=== PATIENT | male | born 1985 | race Hispanic/Latino ===

== ENCOUNTER 2021-04-13 20:59 | Emergency (ER) | payer SELFPAY ==
[2021-04-14] MEDS ORDERED: LEVETIRACETAM 500 MG/5 ML VIAL IV ONE (01:27)
[2021-04-14] MEDS ORDERED: NA CHLORIDE 0.9% 100 ML ONE (01:28)
[2021-04-14] MEDS ORDERED: NA CHLORIDE 0.9% 1,000 ML ONE (01:28)
[2021-04-14 01:32] LABS: Absolute Lymphocytes (CBC) 1.7 K/uL (0.7-4.9); Basophils % 0.2 % (0-1.3); Hematocrit 35.7 % (39.6-49.0); Lymphocytes % 12.5 % (15.3-44.8); MPV 7.4 fL (7.6-11.3); RBC Red Blood Cell Count 4.26 M/uL (4.33-5.43)
[2021-04-14 01:59] LABS: ALT/SGPT 30 U/L (12-78); AST/SGOT 19 U/L (15-37); Albumin 3.6 g/dL (3.4-5.0); Alkaline Phosphatase 97 U/L (45-117); BUN Blood Urea Nitrogen 12 mg/dL (7-18); Bicarbonate 25 mmol/L (21-32); Bilirubin Direct < 0.1 mg/dL (0-0.2); Bilirubin Total 0.1 mg/dL (0.2-1.0); Glucose Level 95 mg/dL (74-106); Potassium 4.3 mmol/L (3.5-5.1); Protein, Total 7.7 g/dL (6.4-8.2); Sodium Level 139 mmol/L (136-145); Troponin (Emerg Dept Use Only) < 0.02 ng/mL (0.0-0.045)
--- NOTE | 2021-04-14 07:59 | EKG ---
Test Date: 2021-04-14 Test Time: 01:12:38 Campus Rep: VIRIDIANA MEASUREMENT RESULTS: Intervals: Rate: 68 AR: 184 QRSD: 94 QT: 380 QTc: 404 Reddick: P: 23 AR: 184 QRS: 59 T: 0 INTERPRETIVE STATEMENTS: Normal sinus rhythm Normal ECG No previous ECG available for comparison Electronically Signed On 04-14-21 07:57:34 CDT by [place]
--- NOTE | 2021-04-14 12:45 | RAD REPORT ---
EXAM DESCRIPTION: CT - Head Brain Wo Cont - 04/14/2021 6:32 am CLINICAL HISTORY: SEIZURE TECHNIQUE: Contiguous axial CT images obtained through the brain without IV contrast. Coronal and sa gittal reformatted images were provided. This exam was performed according to our departmental dose-optimization program, which includes autom ated exposure control, adjustment of the mA and/or kV according to patient size and/or use of iterati ve reconstruction technique. COMPARISON: None available for comparison FINDINGS: Brain: No significant white matter changes. No focal mass effect. Mendoza-white matter differ entiation is within normal limits. No hemorrhage. Ventricles: No ventriculomegaly or midline shift. Extra-axial spaces: No extra-axial collection or hemorrhage. Paranasal sinuses and mastoid air cells: Mild bilateral ethmoid sinus mucosal thickening. Vessels: Unremarkable Bones: Unremarkable Soft tissues: Unremarkable IMPRESSION: No acute hemorrhage, focal mass or large territory infarction. Electronically signed by: Eryn Norman MD 04/13/2021 10:42 PM CDT Due to temporary technical issues with the PACS/Fluency reporting system, reports are being signed by the in house radiologists without review as a courtesy to insure prompt reporting. The interpreting radiologist is fully responsible for the content of the report.
--- NOTE | 2021-04-14 17:50 | ER ---
Nurse's Notes [facility] Name: Chacho Laureano Age: 35 yrs Sex: Male : 1985 Arrival Date: 04/13/2021 Time: 21:01 Bed 17 Private MD: Diagnosis: Other seizures;Epileptic seizures related to external causes, not intractable, without status epilepticus Presentation: 04/13 21:44 Chief complaint: Patient states: Seizure at 19:30 witnessed by . stated he kg didn't hit his head and unsure of how long the seizure was. Pt did bite his tongue, denies loss of bowel or bladder. Pt had his first seizure two months ago but hasn't followed up with neurology. Coronavirus screen: Client denies travel out of the [place] in the last 14 days. At this time, unable to obtain information related to travel outside the [place] At this time, the client does not indicate any symptoms associated with coronavirus-19. Ebola Screen: Patient negative for fever greater than or equal to 101.5 degrees Fahrenheit, and additional compatible Ebola Virus Disease symptoms Patient denies exposure to infectious person. Patient denies travel to an Ebola-affected area in the 21 days before illness onset. Initial Sepsis Screen: Does the patient meet any 2 criteria? No. Patient's initial sepsis screen is negative. Does the patient have a suspected source of infection? No. Patient's initial sepsis screen is negative. Risk Assessment: Do you want to hurt yourself or someone else? Patient reports no desire to harm self or others. Onset of symptoms was April 13, 2021 at 19:30. 21:44 Method Of Arrival: Ambulatory kg 21:44 Acuity: NATY 3 kg Triage Assessment: 21:47 General: Appears in no apparent distress. Behavior is calm, cooperative, appropriate kg for age, quiet. Pain: Complains of pain in Back, left shoulder. Historical: - Allergies: 21:47 No Known Allergies; kg - Home Meds: 21:47 None [Active]; kg - PMHx: 21:47 Seizure; kg - PSHx: 21:47 Appendectomy; kg - Immunization history:: Adult Immunizations up to date, Client reports receiving the 2nd dose of the Covid vaccine, Date received: December 25, 2020 Client reports receiving the 1st dose of the Covid vaccine, December 08, 2020. - Social history:: Smoking status: Patient denies any tobacco usage or history of. Patient uses. - Family history:: not pertinent. Screenin:49 Abuse screen: Denies threats or abuse. Denies injuries from another. Nutritional kg screening: No deficits noted. Tuberculosis screening: No symptoms or risk factors identified. Fall Risk None identified. Fall in past 12 months (25 points). No secondary diagnosis (0 pts). No IV (0 pts). Ambulatory Aid- None/Bed Rest/Nurse Assist (0 pts). Gait- Normal/Bed Rest/Wheelchair (0 pts) Mental Status- Oriented to own ability (0 pts). Total Casey Fall Scale indicates No Risk (0-24 pts). Assessment: 04/14 01:00 Reassessment: Pt S.O. reports pt with witnessed seizure like activity this pm, lasting ad5 approximately 5 min. Pt denies pmh. S.O. reports same s/s approximately 2 mos ago. Pt denies exacerbating factors. Denies c/o at this time, no focal deficits noted. General: Appears in no apparent distress. Behavior is calm, cooperative, appropriate for age. Pain: Denies pain. Neuro: No deficits noted. Level of Consciousness is awake, alert, obeys commands, Oriented to person, place, time, situation, Appropriate for age Engineer Specialist are equal bilaterally Moves all extremities. Gait is steady, Speech is normal, Pupils are PERRLA, Intact. Cardiovascular: No deficits noted. Capillary refill < 3 seconds Patient's skin is warm and dry. Respiratory: Airway is patent Respiratory effort is even, unlabored, Respiratory pattern is regular, symmetrical. GI: No deficits noted. No signs and/or symptoms were reported involving the gastrointestinal system. : No deficits noted. No signs and/or symptoms were reported regarding the genitourinary system. Derm: Skin is dry, Skin is normal, Skin temperature is warm. Musculoskeletal: No deficits noted. No signs and/or symptoms reported regarding the musculoskeletal system. 02:00 Reassessment: Patient appears in no apparent distress at this time. Patient and/or ad5 family updated on plan of care and expected duration. Pain level reassessed. Patient is alert, oriented x 3, equal unlabored respirations, skin warm/dry/pink. Patient states feeling better. Vital Signs: 04/13 21:44 BP 120 / 83; Pulse 83; Resp 20; Temp 97.2(TE); Pulse Ox 99% on R/A; Weight 81.37 kg kg (M); Height 5 ft. 8 in. (172.72 cm) (R); Pain 8; 04/14 01:00 BP 113 / 78; Pulse 69; Resp 16 S; Pulse Ox 98% on R/A; ad5 02:00 BP 108 / 71; Pulse 68; Resp 17 S; Pulse Ox 97% on R/A; ad5 04/13 21:44 Body Mass Index 27.28 (81.37 kg, 172.72 cm) kg ED Course: 04/13 21:01 Patient arrived in ED. cf2 21:47 Triage completed. kg 21:47 Arm band placed on left wrist. kg 21:49 Patient has correct armband on for positive identification. kg 22:01 CT Head Brain wo Cont In Process Unspecified. EDMS 04/14 00:54 Efraín Liao MD is Attending Physician. cristhian 01:03 Dave Lopez is Primary Nurse. ad5 01:23 Initial lab(s) drawn, by nd, sent to lab. EKG done, by ED staff, reviewed by Efraín Liao MD. Inserted saline lock: 20 gauge in left antecubital area, using aseptic technique. Blood collected. 02:00 Lamont Sanders MD is Referral Physician. cristhian 02:16 No provider procedures requiring assistance completed. IV discontinued, intact, ad5 bleeding controlled, No redness/swelling at site. Pressure dressing applied. Administered Medications: 01:23 Drug: NS 0.9% 1000 ml Route: IV; Rate: 1 bolus; Site: left antecubital; ad5 02:16 Follow up: IV Status: Completed infusion ad5 01:23 Drug: Keppra (levETIRAcetam) 1000 mg Route: IV; Rate: per protocol; Site: left ad5 antecubital; 02:05 Follow up: Response: No adverse reaction; IV Status: Completed infusion; IV Intake: ad5 1000ml Intake: 02:05 IV: 1000ml; Total: 1000ml. ad5 Outcome: 02:00 Discharge ordered by . cristhian 02:17 Discharged to home ambulatory. ad5 02:17 Condition: stable 02:17 Discharge instructions given to patient, significant other, Instructed on discharge instructions, follow up and referral plans. medication usage, Demonstrated understanding of instructions, follow-up care, medications, Prescriptions given X 1. 02:18 Patient left the ED. ad5 Signatures: Dispatcher [employer] Efraín Jaquez MD MD cha Frazier, Celesta cf2 Candi Sarabia, PILI RN Dave Larios ad5
--- NOTE | 2021-04-14 17:50 | EDPHYS ---
Physician Documentation [facility] Name: Chacho Laureano Age: 35 yrs Sex: Male : 1985 Arrival Date: 04/13/2021 Time: 21:01 Bed 17 Private MD: Efraín Gibbs HPI: 04/14 01:01 This 35 yrs old Male presents to ER via Ambulatory with complaints of SEIZURE cristhian PRIOR TO ARRIVAL. 01:01 The patient presents after having a single isolated seizure, that lasted 1.5 minute(s). cristhian Character of seizure(s): Loss of consciousness: the patient experienced loss of consciousness, Motor activity: generalized, Incontinence: none, Apnea: the patient did not experience apnea. Seizure onset: just prior to arrival. Context: the seizure(s) was witnessed, by family, occurred at home. Seizure Hx: Last seizure: The patient's last seizure was approximately 1 year(s) ago. Associated injury: The patient did not suffer any apparent associated injury. EMS care: none. Current symptoms: Currently, the patient is not experiencing any symptoms. The patient has experienced a previous episode, last year. Historical: - Allergies: 04/13 21:47 No Known Allergies; kg - Home Meds: 21:47 None [Active]; kg - PMHx: 21:47 Seizure; kg - PSHx: 21:47 Appendectomy; kg - Immunization history:: Adult Immunizations up to date, Client reports receiving the 2nd dose of the Covid vaccine, Date received: December 25, 2020 Client reports receiving the 1st dose of the Covid vaccine, December 08, 2020. - Social history:: Smoking status: Patient denies any tobacco usage or history of. Patient uses. - Family history:: not pertinent. ROS: 04/14 01:01 Constitutional: Negative for fever, chills, and weight loss, Eyes: Negative for injury, cristhian pain, redness, and discharge, ENT: Negative for injury, pain, and discharge, Neck: Negative for injury, pain, and swelling, Cardiovascular: Negative for chest pain, palpitations, and edema, Respiratory: Negative for shortness of breath, cough, wheezing, and pleuritic chest pain, Abdomen/GI: Negative for abdominal pain, nausea, vomiting, diarrhea, and constipation, Back: Negative for injury and pain, : Negative for injury, bleeding, discharge, and swelling, MS/Extremity: Negative for injury and deformity, Skin: Negative for injury, rash, and discoloration, Psych: Negative for depression, anxiety, suicide ideation, homicidal ideation, and hallucinations, Allergy/Immunology: Negative for hives, rash, and allergies, Endocrine: Negative for neck swelling, polydipsia, polyuria, polyphagia, and marked weight changes, Hematologic/Lymphatic: Negative for swollen nodes, abnormal bleeding, and unusual bruising. Neuro: Positive for seizure activity. Exam: :02 Constitutional: This is a well developed, well nourished patient who is awake, alert, cristhian and in no acute distress. Head/Face: Normocephalic, atraumatic. Eyes: Pupils equal round and reactive to light, extra-ocular motions intact. Lids and lashes normal. Conjunctiva and sclera are non-icteric and not injected. Cornea within normal limits. Periorbital areas with no swelling, redness, or edema. ENT: Nares patent. No nasal discharge, no septal abnormalities noted. Tympanic membranes are normal and external auditory canals are clear. Oropharynx with no redness, swelling, or masses, exudates, or evidence of obstruction, uvula midline. Mucous membranes moist. Neck: Trachea midline, no thyromegaly or masses palpated, and no cervical lymphadenopathy. Supple, full range of motion without nuchal rigidity, or vertebral point tenderness. No Meningismus. Chest/axilla: Normal chest wall appearance and motion. Nontender with no deformity. No lesions are appreciated. Cardiovascular: Regular rate and rhythm with a normal S1 and S2. No gallops, murmurs, or rubs. Normal PMI, no JVD. No pulse deficits. Respiratory: Lungs have equal breath sounds bilaterally, clear to auscultation and percussion. No rales, rhonchi or wheezes noted. No increased work of breathing, no retractions or nasal flaring. Abdomen/GI: Soft, non-tender, with normal bowel sounds. No distension or tympany. No guarding or rebound. No evidence of tenderness throughout. Back: No spinal tenderness. No costovertebral tenderness. Full range of motion. Skin: Warm, dry with normal turgor. Normal color with no rashes, no lesions, and no evidence of cellulitis. MS/ Extremity: Pulses equal, no cyanosis. Neurovascular intact. Full, normal range of motion. Neuro: Awake and alert, GCS 15, oriented to person, place, time, and situation. Cranial nerves II-XII grossly intact. Motor strength 5/5 in all extremities. Sensory grossly intact. Cerebellar exam normal. Normal gait. Psych: Awake, alert, with orientation to person, place and time. Behavior, mood, and affect are within normal limits. 01:33 ECG was reviewed by the Attending Physician. [facility] Vital Signs: 04/13 21:44 BP 120 / 83; Pulse 83; Resp 20; Temp 97.2(TE); Pulse Ox 99% on R/A; Weight 81.37 kg kg (M); Height 5 ft. 8 in. (172.72 cm) (R); Pain 04/28; 04/14 01:00 BP 113 / 78; Pulse 69; Resp 16 S; Pulse Ox 98% on R/A; ad5 02:00 BP 108 / 71; Pulse 68; Resp 17 S; Pulse Ox 97% on R/A; ad5 04/13 21:44 Body Mass Index 27.28 (81.37 kg, 172.72 cm) kg MDM: 00:54 Patient medically screened. [facility] 01:03 Differential diagnosis: drug overdose, cardiac arrhythmia, seizure. Data reviewed: [facility] vital signs, nurses notes, lab test result(s), EKG, radiologic studies, CT scan. Data interpreted: monitoring specialist: rate is 83 beats/min, rhythm is regular, Pulse oximetry: on room air is 99 %. Test interpretation: by ED physician or midlevel provider: ECG. Counseling: I had a detailed discussion with the patient and/or guardian regarding: the historical points, exam findings, and any diagnostic results supporting the discharge/admit diagnosis, lab results, radiology results, the need for outpatient follow up, for definitive care, a family practitioner, a neurologist. 04/14 00:59 Order name: Acetaminophen [facility] 04/14 00:59 Order name: Basic Metabolic Panel [facility] 04/14 00:59 Order name: CBC with Diff; Complete Time: 01:50 [facility] 04/14 00:59 Order name: ETOH Level; Complete Time: 02:00 [facility] 04/14 00:59 Order name: Hepatic Function [facility] 04/14 00:59 Order name: Salicylate [facility] 04/13 21:52 Order name: CT Head Brain wo Cont kg 04/14 00:59 Order name: EKG; Complete Time: 01:00 [facility] 04/14 00:59 Order name: EKG - Nurse/Tech; Complete Time: [facility] 04/14 00:59 Order name: IV Saline Lock; Complete Time: [facility] 04/14 00:59 Order name: Troponin (emerg Dept Use Only) [facility] 04/14 00:59 Order name: Labs collected and sent; Complete Time: [facility] 04/14 00:59 Order name: Seizure Precautions; Complete Time: 01:03 [facility] EC:33 Rate is 68 beats/min. Rhythm is regular. QRS [place] is Normal. IA interval is normal. QRS cristhian interval is normal. QT interval is normal. No Q waves. T waves are Normal. No ST changes noted. Clinical impression: Normal ECG and No evidence of ischemia. Interpreted by me. Reviewed by me. Administered Medications: Drug: NS 0.9% 1000 ml Route: IV; Rate: 1 bolus; Site: left antecubital; ad5 02:16 Follow up: IV Status: Completed infusion ad5 01:23 Drug: Keppra (levETIRAcetam) 1000 mg Route: IV; Rate: per protocol; Site: left ad5 antecubital; 02:05 Follow up: Response: No adverse reaction; IV Status: Completed infusion; IV Intake: ad5 1000ml Disposition Summary: 04/14/21 02:00 Discharge Ordered Location: Home cristhian Problem: new cristhian Symptoms: have improved cristhian Condition: Stable cristhian Diagnosis - Other seizures cristhian - Epileptic seizures related to external causes, not intractable, without status cristhian epilepticus Followup: cristhian - With: Private Physician - When: 2 - 3 days - Reason: Recheck today's complaints, Continuance of care, Re-evaluation by your physician Followup: cristhian - With: - When: 2 - 3 days - Reason: Recheck today's complaints, Re-evaluation by your physician Discharge Instructions: - Discharge Summary Sheet cristhian - Epilepsy cristhian - Seizure, Adult cristhian - Epilepsy, [id number] cristhian Forms: - Medication Reconciliation Form cristhian - Thank You Letter cristhian - Antibiotic Education cristhian - Prescription Opioid Use cristhian Prescriptions: - Keppra 500 mg Oral Tablet - take 1 tablet by ORAL route every 12 hours; 30 tablet; Refills: 0, Product cristhian Selection Permitted Signatures: Dispatcher [employer] CLEMENTINE Liao Efraín, MD MD cristhian Cornell, Candi, RN RN Dave Larios
[2021-04-15 17:28] VITALS: TEMP 97.2
[2021-04-15 17:32] VITALS: BP 108/71; O2SAT 97
== END 2021-04-14 02:18 | disposition home or self-care (01) ==
LOC: ER 20:59
DX: G40.509 Epileptic seizures related to external causes, not intractable, without status epilepticus (principal)
CPT/HCPCS: 36415; 70450; 80048; 80076; 80320; 80329; 84484; 85025; 93005; J1953; J7030

== ENCOUNTER 2021-05-02 15:06 | Emergency (ER) | payer SELFPAY ==
--- NOTE | 2021-05-02 16:11 | EDPHYS ---
Physician Documentation [facility] Name: Chacho Pulido Age: 35 yrs Sex: Male : 1985 Arrival Date: 05/02/2021 Time: 15:07 Bed Waiting Private MD: ED Physician Drew Davis HPI: 05/02 16:06 This 35 yrs old Male presents to ER via Ambulatory with complaints of cp Medication Refill. 16:06 The patient presents to the emergency department requesting refill(s) for: Keppra. The cp patient chronically suffers from seizures. 16:06 Patient reports he has an appointment with neurology in 2 months. cp Historical: - Allergies: 16:06 No Known Allergies; ss - PMHx: 16:06 Seizure; ss - PSHx: 16:06 Appendectomy; ss - Immunization history:: Adult Immunizations up to date. - Social history:: Smoking status: Patient denies any tobacco usage or history of. ROS: 16:08 Constitutional: Negative for fever. cp 16:08 Neuro: Positive for history of seizure disorder, Negative for altered mental status, headache. Exam: 16:08 Head/Face: Normocephalic, atraumatic. cp 16:08 Constitutional: The patient appears in no acute distress, alert, awake, comfortable, non-toxic, well developed, well nourished. 16:08 Eyes: Periorbital structures: appear normal, Pupils: equal, round, and reactive to light and accomodation, Extraocular movements: intact throughout, Conjunctiva: normal, no exudate, no injection, Sclera: no appreciated abnormality, Lids and lashes: appear normal, bilaterally. 16:08 ENT: External ear(s): are unremarkable, Nose: is normal, Posterior pharynx: Airway: no evidence of obstruction, patent. 16:08 Chest/axilla: Inspection: normal, Palpation: is normal, no crepitus, no tenderness. 16:08 Cardiovascular: Rate: normal, Rhythm: regular. 16:08 Respiratory: the patient does not display signs of respiratory distress, Respirations: normal, no use of accessory muscles. 16:08 Neuro: Orientation: to person, place \T\ time. Mentation: is normal, Motor: moves all fours, strength is normal, Gait: is steady, at a normal pace, without difficulty. Vital Signs: 16:01 BP 131 / 77 RA Sitting (auto/reg); Pulse 84; Resp 14 S; Temp 98.2(TE); Pulse Ox 98% on ss R/A; Weight 70.76 kg (R); Height 5 ft. 9 in. (175.26 cm) (R); Pain 0/10; 16:01 Body Mass Index 23.04 (70.76 kg, 175.26 cm) ss MDM: 16:10 Patient medically screened. cp 16:10 Data reviewed: vital signs, nurses notes. Counseling: I had a detailed discussion with cp the patient and/or guardian regarding: the historical points, exam findings, and any diagnostic results supporting the discharge/admit diagnosis, the need for outpatient follow up, for definitive care, a neurologist. Administered Medications: No medications were administered Disposition: 16:15 Chart complete. cp Disposition Summary: 05/02/21 16:10 Discharge Ordered Location: Home cp Problem: chronic cp Symptoms: are unchanged cp Condition: Stable cp Diagnosis - Other seizures cp Followup: cp - With: Lamont Sanders MD - When: 2 - 3 days - Reason: Recheck today's complaints Discharge Instructions: - Discharge Summary Sheet cp - Electroencephalogram, Adult cp - Seizure, Adult cp Forms: - Medication Reconciliation Form cp - Thank You Letter cp - Antibiotic Education cp - Prescription Opioid Use cp Prescriptions: - Keppra 500 mg Oral Tablet - take 1 tablet by ORAL route every 12 hours; 60 tablet; Refills: 0, Product cp Selection Permitted Addendum: 05/03/2021 18:43 Co-signature as Attending Physician, Drew Davis MD I agree with the assessment and t w4 plan of care. Signatures: Baylee Gordillo, RN RN ss Efraín Sheets PA PA cp Drew Davis MD MD tw4
--- NOTE | 2021-05-02 16:11 | ER ---
Nurse's Notes [facility] Name: Chacho Pulido Age: 35 yrs Sex: Male : 1985 Arrival Date: 05/02/2021 Time: 15:07 Bed Waiting Private MD: Diagnosis: Other seizures Presentation: 05/02 16:03 Chief complaint: Patient states: Out of seizure medication. Has an appointment with ss neuro, but is in two months. Coronavirus screen: Client denies travel out of the [place] in the last 14 days. Ebola Screen: Patient denies exposure to infectious person. Patient denies travel to an Ebola-affected area in the 21 days before illness onset. Initial Sepsis Screen: Does the patient meet any 2 criteria? No. Patient's initial sepsis screen is negative. Does the patient have a suspected source of infection? No. Patient's initial sepsis screen is negative. Risk Assessment: Do you want to hurt yourself or someone else? Patient reports no desire to harm self or others. Onset of symptoms is unknown. 16:03 Method Of Arrival: Ambulatory ss 16:03 Acuity: NATY 5 ss Historical: - Allergies: 16:06 No Known Allergies; ss - PMHx: 16:06 Seizure; ss - PSHx: 16:06 Appendectomy; ss - Immunization history:: Adult Immunizations up to date. - Social history:: Smoking status: Patient denies any tobacco usage or history of. Screenin:06 Abuse screen: Denies threats or abuse. Denies injuries from another. Nutritional ss screening: No deficits noted. Tuberculosis screening: Never had TB. Fall Risk None identified. Assessment: 16:06 General: Appears in no apparent distress. comfortable, Behavior is calm, cooperative. ss Pain: Denies pain. Neuro: Level of Consciousness is awake, alert, obeys commands, Oriented to person, place, time, situation. Cardiovascular: Capillary refill < 3 seconds is brisk in bilateral fingers. Respiratory: Airway is patent Respiratory effort is even, unlabored, Respiratory pattern is regular, symmetrical. GI: No signs and/or symptoms were reported involving the gastrointestinal system. EENT: Throat is clear. Derm: Skin is intact, is healthy with good turgor, Skin is Skin is pink, warm \T\ dry. normal. Musculoskeletal: Circulation, motion, and sensation intact. Range of motion: intact in all extremities, Swelling absent. Vital Signs: 16:01 BP 131 / 77 RA Sitting (auto/reg); Pulse 84; Resp 14 S; Temp 98.2(TE); Pulse Ox 98% on ss R/A; Weight 70.76 kg (R); Height 5 ft. 9 in. (175.26 cm) (R); Pain 0/10; 16:01 Body Mass Index 23.04 (70.76 kg, 175.26 cm) ED Course: 15:07 Patient arrived in ED. mr 16:05 Triage completed. ss 16:05 Efraín Sheets PA is PHCP. cp 16:06 Drew Davis MD is Attending Physician. cp 16:06 Arm band placed on right wrist. ss 16:06 Patient has correct armband on for positive identification. Bed in low position. Call ss light in reach. 16:07 No provider procedures requiring assistance completed. Patient did not have IV access ss during this emergency room visit. 16:10 Lamont Sanders MD is Referral Physician. cp Administered Medications: No medications were administered Outcome: 16:07 Discharged to home ambulatory. ss 16:07 Condition: good 16:07 Discharge instructions given to patient, Instructed on discharge instructions, follow up and referral plans. medication usage, Demonstrated understanding of instructions, follow-up care, medications, Prescriptions given X 1. 16:10 Discharge ordered by . cp 16:14 Patient left the ED. Signatures: OleaBrigid macedo mr GordilloBaylee, RN RN Efraín Sheets PA PA cp
[2021-05-02 16:20] VITALS: BP 131/77; TEMP 98.2; O2SAT 98
== END 2021-05-02 16:14 | disposition home or self-care (01) ==
LOC: ER 15:06
DX: G40.909 Epilepsy, unspecified, not intractable, without status epilepticus (principal); Z76.0 Encounter for issue of repeat prescription
CPT/HCPCS: 99282

== ENCOUNTER 2021-10-20 00:41 | Emergency (ER) | payer OTHER, SELFPAY ==
[2021-10-20] MEDS ORDERED: LORazepam 2 MG/ML VIAL ONE (01:35)
[2021-10-20] MEDS ORDERED: NA CHLORIDE 0.9% 1,000 ML ONE (01:36)
[2021-10-20] MEDS ORDERED: LEVETIRACETAM 500 MG/5 ML VIAL IV ONE (01:36)
[2021-10-20 01:49] LABS: Absolute Lymphocytes (CBC) 1.6 K/uL (0.7-4.9); Hematocrit 38.6 % (39.6-49.0); Lymphocytes % 8.4 % (15.3-44.8); MPV 7.2 fL (7.6-11.3); RBC Red Blood Cell Count 4.63 M/uL (4.33-5.43)
[2021-10-20 01:50] LABS: Protime INR 1.03
[2021-10-20 02:17] LABS: ALT/SGPT 29 U/L (12-78); AST/SGOT 15 U/L (15-37); Albumin 3.7 g/dL (3.4-5.0); Alkaline Phosphatase 109 U/L (45-117); BUN Blood Urea Nitrogen 15 mg/dL (7-18); Bicarbonate 21 mmol/L (21-32); Bilirubin Direct < 0.1 mg/dL (0-0.2); Bilirubin Total 0.2 mg/dL (0.2-1.0); Glucose Level 144 mg/dL (74-106); Protein, Total 8.3 g/dL (6.4-8.2); Sodium Level 135 mmol/L (136-145)
--- NOTE | 2021-10-20 02:58 | ER ---
Nurse's Notes [facility] Name: Chacho Pulido Age: 36 yrs Sex: Male : 1985 Arrival Date: 10/20/2021 Time: 00:44 Bed 5 Private MD: Diagnosis: Other seizures;Adjustment disorder with depressed mood;Adjustment disorder with anxiety;Elevated white blood cell count Presentation: 10/20 01:03 Chief complaint: Patient states: Patient states he had a seizure and bit his tongue ll3 about 30 minutes ago, states he was laying down when it occurred, states he had a seizure before in april and he attributes the seizures to stress. Coronavirus screen: Vaccine status: Patient reports receiving the 2nd dose of the covid vaccine. At this time, the client does not indicate any symptoms associated with coronavirus-19. Ebola Screen: No symptoms or risks identified at this time. Initial Sepsis Screen: Does the patient meet any 2 criteria? No. Patient's initial sepsis screen is negative. Does the patient have a suspected source of infection? No. Patient's initial sepsis screen is negative. Risk Assessment: Do you want to hurt yourself or someone else? Patient reports no desire to harm self or others. Onset of symptoms was October 19, 2021 at 00:30. Activity prior to arrival: seizure, vomiting. 01:03 Method Of Arrival: Ambulatory ll3 01:03 Acuity: NATY 3 ll3 Triage Assessment: 01:08 General: Appears comfortable, ill, Behavior is calm, cooperative. Pain: Complains of ll3 pain in H/A, whole body. EENT:. Neuro: Level of Consciousness is awake, alert, obeys commands, Oriented to person, place, time, situation. Cardiovascular: Patient's skin is warm and dry. Respiratory: Respiratory effort is even, unlabored, Respiratory pattern is regular, symmetrical. GI: Reports nausea, vomiting. Derm: Wound noted tongue Reports Pt states he bit his tongue while having a seizure. Historical: - Allergies: 01:08 No Known Allergies; ll3 - Home Meds: 01:08 None [Active]; ll3 - PMHx: 01:08 Seizure; ll3 - PSHx: 01:08 Appendectomy; ll3 - Social history:: Smoking status: Patient denies any tobacco usage or history of. - Family history:: not pertinent. Screenin:26 Abuse screen: Denies threats or abuse. Denies injuries from another. Nutritional sm5 screening: No deficits noted. Tuberculosis screening: No symptoms or risk factors identified. Fall Risk Secondary diagnosis (15 points) seizures, IV access (20 points). Total Casey Fall Scale indicates Low Risk Score (25-44 pts). Fall prevention measures have been instituted. Side Rails Up X 2 Frequent Obs/Assesments occuring. Assessment: 01:08 General: See triage assessment. ll3 01:08 GI: Abdomen is round non-distended. ll3 02:13 Reassessment: Patient appears in no apparent distress at this time. No changes from ll3 previously documented assessment. Patient and/or family updated on plan of care and expected duration. Pain level reassessed. Patient is alert, oriented x 3, equal unlabored respirations, skin warm/dry/pink. 03:10 Reassessment: Patient appears in no apparent distress at this time. No changes from ll3 previously documented assessment. Patient and/or family updated on plan of care and expected duration. Pain level reassessed. Patient is alert, oriented x 3, equal unlabored respirations, skin warm/dry/pink. Psych: 02:00 [place] Suicide Severity Screening: In the past month, have you wished you were sm5 or wished you could go to sleep and not wake up? Patient responds "No." "In the past month, have you actually had any thoughts of killing yourself?" Patient responds "no." "In your lifetime, have you ever done anything, started to do anything, or prepared to do anything to end your life?" Patient responds "no.". Subjective: Delusions are denied, Hallucinations are denied. Objective: Patient is cooperative, Speech is normal. Interventions: Patient placed in hospital gown. Safety Checks: Door is open. Pt denies substance abuse. Commitment: none. Vital Signs: 00:54 BP 117 / 87; Pulse 107; Resp 20; Temp 98.0(O); Pulse Ox 100% on R/A; Weight 88.9 kg; ll3 Pain 8/10; 02:12 BP 118 / 84; Pulse 103; Resp 14; Pulse Ox 96% on R/A; ll3 02:35 BP 113 / 77; Pulse 101; Resp 16; Pulse Ox 98% on R/A; sm5 03:10 BP 109 / 74; Pulse 97; Resp 16; Pulse Ox 97% on R/A; ll3 ED Course: 00:44 Patient arrived in ED. es 01:08 Triage completed. ll3 01:08 Arm band placed on left wrist. ll3 01:11 Efraín Liao MD is Attending Physician. cristhian 01:24 Gabriella Calloway, PILI is Primary Nurse. sm5 01:25 Inserted saline lock: 20 gauge in left antecubital area, using aseptic technique. Blood sm5 collected. 01:48 Acetaminophen Sent. sm5 01:48 Basic Metabolic Panel Sent. sm5 02:01 Patient has correct armband on for positive identification. Placed in gown. Bed in low sm5 position. Call light in reach. Side rails up X2. monitoring manager on. Pulse ox on. NIBP on. 02:01 Seizure precautions initiated. ll3 02:08 CT Head Brain wo Cont In Process Unspecified. EDMS 02:58 Lamont Sanders MD is Referral Physician. cristhian 02:58 John Álvarez MD is Referral Physician. cristhian 03:10 No provider procedures requiring assistance completed. ll3 03:23 IV discontinued, intact, bleeding controlled, No redness/swelling at site. Pressure ll3 dressing applied. Administered Medications: 01:42 Drug: Ativan (LORazepam) 1 mg Route: IVP; Site: left antecubital; 5 03:08 Follow up: Response: No adverse reaction ll3 01:43 Drug: NS 0.9% 1000 ml Route: IV; Rate: 1 bolus; Site: left antecubital; 5 03:09 Follow up: Response: No adverse reaction; IV Status: Completed infusion; IV Intake: ll3 1000ml 01:43 Drug: Keppra (levETIRAcetam) 1000 mg Route: IV; Rate: per protocol; Site: left sm5 antecubital; 03:08 Follow up: Response: No adverse reaction ll3 03:09 Follow up: IV Status: Completed infusion; IV Intake: 1000ml ll3 Intake: 03:09 IV: 1000ml; Total: 1000ml. ll3 03:09 IV: 1000ml; Total: 2000ml. ll3 Outcome: 02:58 Discharge ordered by . cristhian 03:23 Discharged to home ambulatory. ll3 03:23 Condition: stable 03:23 Discharge instructions given to patient, Instructed on discharge instructions, follow up and referral plans. medication usage, Demonstrated understanding of instructions, follow-up care, medications. 03:24 Patient left the ED. ll3 Signatures: Dispatcher [employer] Efraín Jaquez MD MD cha Salyer, Avelina Barraza RN RN ll3 Gabriella Calloway RN RN sm5 Corrections: (The following items were deleted from the chart) 02:13 02:13 GI: Abdomen is round non-distended, ll3 ll3
--- NOTE | 2021-10-20 02:59 | EDPHYS ---
Physician Documentation [facility] Name: Chacho Pulido Age: 36 yrs Sex: Male : 1985 Arrival Date: 10/20/2021 Time: 00:44 Bed 5 Private MD: GUALBERTO Physician Efraín Liao HPI: 10/20 01:46 This 36 yrs old Male presents to ER via Ambulatory with complaints of cristhian Vomiting, blood. 01:46 The patient presents to the emergency department with nausea, vomiting, that is cristhian intermittent. 01:46 Onset: The symptoms/episode began/occurred just prior to arrival. Possible causes: cristhian unknown. The symptoms are aggravated by nothing. The symptoms are alleviated by nothing. The patient presents after having a single isolated seizure, that lasted an unknown period of time. Character of seizure(s): Loss of consciousness: the patient experienced loss of consciousness, Motor activity: generalized, Incontinence: none, Apnea: the patient did not experience apnea, Circulation: the patient did not experience evidence of pulse disturbance. Seizure onset: just prior to arrival. Seizure Hx: Last seizure: The patient's last seizure was approximately 1 year(s) ago. Associated injury: Other: tongue. Associated signs and symptoms: The patient has no apparent associated signs or symptoms. Severity of symptoms: At their worst the symptoms were mild moderate in the emergency department the symptoms are unchanged. Historical: - Allergies: 01:08 No Known Allergies; ll3 - Home Meds: 01:08 None [Active]; ll3 - PMHx: 01:08 Seizure; ll3 - PSHx: 01:08 Appendectomy; ll3 - Social history:: Smoking status: Patient denies any tobacco usage or history of. - Family history:: not pertinent. ROS: 01:46 Constitutional: Negative for fever, chills, and weight loss, Eyes: Negative for injury, cristhian pain, redness, and discharge, ENT: Negative for injury, pain, and discharge, Neck: Negative for injury, pain, and swelling, Cardiovascular: Negative for chest pain, palpitations, and edema, Respiratory: Negative for shortness of breath, cough, wheezing, and pleuritic chest pain, Abdomen/GI: Negative for abdominal pain, nausea, vomiting, diarrhea, and constipation, Back: Negative for injury and pain, : Negative for injury, bleeding, discharge, and swelling, MS/Extremity: Negative for injury and deformity, Skin: Negative for injury, rash, and discoloration, Allergy/Immunology: Negative for hives, rash, and allergies, Endocrine: Negative for neck swelling, polydipsia, polyuria, polyphagia, and marked weight changes, Hematologic/Lymphatic: Negative for swollen nodes, abnormal bleeding, and unusual bruising. 01:46 Neuro: Positive for seizure activity. :46 Psych: Positive for anxiety, depression, insomnia. 02:58 Psych: Positive for Negative for homicidal ideation, suicide gesture, suicidal ideation.cristhian Exam: :46 Constitutional: This is a well developed, well nourished patient who is awake, alert, cristhian and in no acute distress. Head/Face: Normocephalic, atraumatic. Eyes: Pupils equal round and reactive to light, extra-ocular motions intact. Lids and lashes normal. Conjunctiva and sclera are non-icteric and not injected. Cornea within normal limits. Periorbital areas with no swelling, redness, or edema. ENT: Nares patent. No nasal discharge, no septal abnormalities noted. Tympanic membranes are normal and external auditory canals are clear. Oropharynx with no redness, swelling, or masses, exudates, or evidence of obstruction, uvula midline. Mucous membranes moist. Neck: Trachea midline, no thyromegaly or masses palpated, and no cervical lymphadenopathy. Supple, full range of motion without nuchal rigidity, or vertebral point tenderness. No Meningismus. Chest/axilla: Normal chest wall appearance and motion. Nontender with no deformity. No lesions are appreciated. Cardiovascular: Regular rate and rhythm with a normal S1 and S2. No gallops, murmurs, or rubs. Normal PMI, no JVD. No pulse deficits. Respiratory: Lungs have equal breath sounds bilaterally, clear to auscultation and percussion. No rales, rhonchi or wheezes noted. No increased work of breathing, no retractions or nasal flaring. Abdomen/GI: Soft, non-tender, with normal bowel sounds. No distension or tympany. No guarding or rebound. No evidence of tenderness throughout. Back: No spinal tenderness. No costovertebral tenderness. Full range of motion. Male : Normal genitalia with no discharge or lesions. Skin: Warm, dry with normal turgor. Normal color with no rashes, no lesions, and no evidence of cellulitis. MS/ Extremity: Pulses equal, no cyanosis. Neurovascular intact. Full, normal range of motion. Neuro: Awake and alert, GCS 15, oriented to person, place, time, and situation. Cranial nerves II-XII grossly intact. Motor strength 5/5 in all extremities. Sensory grossly intact. Cerebellar exam normal. Normal gait. Psych: Awake, alert, with orientation to person, place and time. Behavior, mood, and affect are within normal limits. 01:54 ECG was reviewed by the Attending Physician. cristhian 02:57 Neck: ROM/movement: is normal, no acute changes, limited range of motion, is not cristhian appreciated, Meningeal signs: are not present, Kernig's sign is negative, Brudzinski's sign is negative, nuchal rigidity, is not appreciated, Lymph nodes: no appreciated lymphadenopathy. Vital Signs: 00:54 BP 117 / 87; Pulse 107; Resp 20; Temp 98.0(O); Pulse Ox 100% on R/A; Weight 88.9 kg; ll3 Pain 8/10; 02:12 BP 118 / 84; Pulse 103; Resp 14; Pulse Ox 96% on R/A; ll3 02:35 BP 113 / 77; Pulse 101; Resp 16; Pulse Ox 98% on R/A; sm5 03:10 BP 109 / 74; Pulse 97; Resp 16; Pulse Ox 97% on R/A; ll3 MDM: 01:11 Patient medically screened. cristhian 01:49 Differential diagnosis: gastritis. Differential diagnosis: cerebral vascular accident, cristhian drug overdose, cardiac arrhythmia, seizure, TIA. Data reviewed: vital signs, nurses notes, lab test result(s), EKG, radiologic studies, CT scan. Data interpreted: traffic monitor specialist: rate is 107 beats/min, rhythm is regular. Test interpretation: by ED physician or midlevel provider: ECG, plain radiologic studies. Counseling: I had a detailed discussion with the patient and/or guardian regarding: the historical points, exam findings, and any diagnostic results supporting the discharge/admit diagnosis, lab results, radiology results, the need for outpatient follow up, for definitive care, a family practitioner, a neurologist, a psychiatrist. 10/20 01:24 Order name: Acetaminophen [facility] 10/20 01:24 Order name: Basic Metabolic Panel [facility] 10/20 01:24 Order name: CBC with Diff; Complete Time: 02:30 [facility] 10/20 01:24 Order name: ETOH Level; Complete Time: 02:30 [facility] 10/20 01:24 Order name: Hepatic Function; Complete Time: 02:30 [facility] 10/20 01:24 Order name: PT-INR; Complete Time: 02:30 [facility] 10/20 01:24 Order name: Ptt, Activated; Complete Time: 02:30 [facility] 10/20 01:24 Order name: Salicylate; Complete Time: 02:30 [facility] 10/20 01:24 Order name: CT Head Brain wo Cont [facility] 10/20 01:25 Order name: Acetaminophen Level; Complete Time: 02:30 EDMS 10/20 01:25 Order name: Basic Metabolic Panel; Complete Time: 02:30 EDMS 10/20 01:24 Order name: EKG; Complete Time: 01:26 [facility] 10/20 01:24 Order name: EKG - Nurse/Tech; Complete Time: 01:45 [facility] 10/20 01:24 Order name: IV Saline Lock; Complete Time: 01:25 [facility] 10/20 01:24 Order name: Labs collected and sent; Complete Time: 01:25 [facility] 10/20 01:24 Order name: Suicide Screening ([place]); Complete Time: 01:59 [facility] 10/20 01:24 Order name: Seizure Precautions; Complete Time: 01:25 [facility] EC:54 Rate is 104 beats/min. Rhythm is regular. QRS [place] is Normal. MA interval is normal. [facility] QRS interval is normal. QT interval is normal. No Q waves. T waves are Normal. No ST changes noted. Clinical impression: Normal ECG and No evidence of ischemia. Interpreted by me. Reviewed by me. Administered Medications: 01:42 Drug: Ativan (LORazepam) 1 mg Route: IVP; Site: left antecubital; 5 03:08 Follow up: Response: No adverse reaction ll3 01:43 Drug: NS 0.9% 1000 ml Route: IV; Rate: 1 bolus; Site: left antecubital; 5 03:09 Follow up: Response: No adverse reaction; IV Status: Completed infusion; IV Intake: ll3 1000ml 01:43 Drug: Keppra (levETIRAcetam) 1000 mg Route: IV; Rate: per protocol; Site: left sm5 antecubital; 03:08 Follow up: Response: No adverse reaction ll3 03:09 Follow up: IV Status: Completed infusion; IV Intake: 1000ml ll3 Disposition Summary: 10/20/21 02:58 Discharge Ordered Location: Home cristhian Problem: new cristhian Symptoms: have improved cristhian Condition: Stable cristhian Diagnosis - Other seizures cristhian - Adjustment disorder with depressed mood cristhian - Adjustment disorder with anxiety cristhian - Elevated white blood cell count cristhian Followup: cristhian - With: Private Physician - When: 2 - 3 days - Reason: Recheck today's complaints, Continuance of care, Re-evaluation by your physician Followup: cristhian - With: - When: 2 - 3 days - Reason: Recheck today's complaints, Re-evaluation by your physician Followup: cristhian - With: - When: 2 - 3 days - Reason: Recheck today's complaints, Re-evaluation by your physician Discharge Instructions: - Discharge Summary Sheet cristhian - Adjustment Disorder, Adult cristhian - Seizure, Adult cristhian - Seizure, Adult, [id number] cristhian - Supporting Someone With Anxiety cristhian - Managing Anxiety, Adult cristhian Forms: - Medication Reconciliation Form cristhian - Thank You Letter cristhian - Antibiotic Education cristhian - Prescription Opioid Use cristhian Prescriptions: - Hydroxyzine HCl 50 mg Oral Tablet - take 1 tablet by ORAL route every 8 hours As needed; 20 tablet; Refills: 0, cristhian Product Selection Permitted - Keppra 500 mg Oral Tablet - take 1 tablet by ORAL route every 12 hours; 40 tablet; Refills: 0, Product cristhian Selection Permitted Signatures: Dispatcher [employer] Efraín Jaquez MD MD cha Loubet, Lynsea, RN RN ll3 Gabriella Calloway RN RN sm5
[2021-10-20 03:30] VITALS: TEMP 98
[2021-10-20 03:33] VITALS: BP 109/74; O2SAT 97
--- NOTE | 2021-10-20 08:14 | EKG ---
Test Date: 2021-10-20 Test Time: 01:43:42 Customer Project Manager: LL MEASUREMENT RESULTS: Intervals: Rate: 104 MA: 180 QRSD: 84 QT: 350 QTc: 460 [place]: P: 60 MA: 180 QRS: 54 T: 38 INTERPRETIVE STATEMENTS: Sinus tachycardia Otherwise normal ECG No previous ECG available for comparison Electronically Signed On 10-20-21 08:13:36 OIL WINTERIZER by [place]
--- NOTE | 2021-10-20 12:23 | RAD REPORT ---
EXAM DESCRIPTION: CT - Head Brain Wo Cont - 10/20/2021 6:43 am CLINICAL HISTORY: SEIZURE COMPARISON: 04/13/2021. TECHNIQUE: CT HEAD WITHOUT IV CONTRAST on 10/20/2021 1:24 AM CASINO FLOOR SUPERVISOR This exam was performed according to our departmental dose-optimization program, which includes autom ated exposure control, adjustment of the mA and/or kV according to patient size and/or use of iterati ve reconstruction technique. FINDINGS: There is no acute hemorrhage, mass effect or midline shift. Mendoza-white differentiation is preserved. There is no hydrocephalus. There is no significant volume loss for age. The calvarium is intact. Orbits and globes are unremarkable. The paranasal sinuses are clear. Mastoid air cells are clear. IMPRESSION: No acute intracranial findings. Electronically signed by: Prem Flores MD 10/20/2021 2:23 AM CASINO FLOOR SUPERVISOR Due to temporary technical issues with the PACS/Fluency reporting system, reports are being signed by the in house radiologist without review as a courtesy to ensure prompt reporting. The interpreting r adiologist is fully responsible for the content of the report.
== END 2021-10-20 03:24 | disposition home or self-care (01) ==
LOC: ER 00:41
DX: G40.89 Other seizures (principal); F43.23 Adjustment disorder with mixed anxiety and depressed mood; D72.829 Elevated white blood cell count, unspecified
CPT/HCPCS: 96365; 93005; 85025; 80048; 36415; 80320; 80329 ×2; 85610; 80076; 85730; 70450; 96375; 99284; J1953; J7030